=== PATIENT | female | born 1985 ===

== ENCOUNTER 2022-02-15 11:28 | Emergency (ER) | payer MEDICAID | END 2022-02-15 13:00 | disposition home or self-care (01) | LOC: DL.ED 11:28 | DX: S66.316A Strain of extensor muscle, fascia and tendon of right little finger at wrist and hand level, initial encounter (principal); M20.011 Mallet finger of right finger(s); E66.9 Obesity, unspecified; Z68.41 Body mass index [BMI] 40.0-44.9, adult; W22.09XA Striking against other stationary object, initial encounter | CPT/HCPCS: 73140-F9; 99283-25; 99284 ==